=== PATIENT | female | born 1955 | race Hispanic/Latino ===

== ENCOUNTER → 2018-04-02 | Outpatient (CLI) | payer OTHER | END | disposition home or self-care (01) | LOC: OIH 09:38 | PROVIDERS: ATTEND Internal Medicine | DX: M53.3 Sacrococcygeal disorders, not elsewhere classified (principal) | CPT/HCPCS: 72220 ==

== ENCOUNTER → 2018-12-12 | Outpatient (CLI) | payer OTHER | END | disposition home or self-care (01) | LOC: OIH 09:28 | PROVIDERS: ATTEND Internal Medicine | DX: M53.3 Sacrococcygeal disorders, not elsewhere classified (principal); M54.17 Radiculopathy, lumbosacral region | CPT/HCPCS: 72100; 72220 ==

== ENCOUNTER → 2019-03-22 | Outpatient (CLI) | payer OTHER | END | disposition home or self-care (01) | LOC: OIH 10:30 | PROVIDERS: ATTEND Internal Medicine | DX: M47.815 Spondylosis without myelopathy or radiculopathy, thoracolumbar region (principal); I10 Essential (primary) hypertension; Q25.46 Tortuous aortic arch | CPT/HCPCS: 71046 ==

== ENCOUNTER → 2019-06-21 | Outpatient (CLI) | payer OTHER | END | disposition home or self-care (01) | LOC: OIH 10:20 | PROVIDERS: ATTEND Internal Medicine | DX: I10 Essential (primary) hypertension (principal) | CPT/HCPCS: 71046 ==

== ENCOUNTER → 2021-01-20 | Outpatient (CLI) | payer OTHER | END | disposition home or self-care (01) | LOC: RAH 09:18 | PROVIDERS: ATTEND Internal Medicine | DX: R10.11 Right upper quadrant pain (principal) | CPT/HCPCS: 76700 ==

== ENCOUNTER → 2021-07-05 | Outpatient (CLI) | payer OTHER | END | disposition home or self-care (01) | LOC: RAH 07-02 14:16 | PROVIDERS: ATTEND Internal Medicine | DX: M47.812 Spondylosis without myelopathy or radiculopathy, cervical region (principal); M48.02 Spinal stenosis, cervical region; R07.89 Other chest pain; M47.815 Spondylosis without myelopathy or radiculopathy, thoracolumbar region | CPT/HCPCS: 71046; 72040 ==

== ENCOUNTER → 2024-05-22 | Outpatient (CLI) | payer OTHER ==
--- NOTE | 2024-05-22 15:50 | HMCIMG ---
CT ABDOMEN/PELVIS W/O CONTRAST HISTORY: Right flank pain COMPARISON: None TECHNIQUE: Multiple sequential axial images of the abdomen and pelvis were obtained from the dome of the diaphragm through symphysis pubis. Patient was not given contrast through intravenous route. Oral contrast was not given. FINDINGS: No pleural effusion is seen bilaterally. There is no evidence of parenchymal disease or pulmonary nodule of the visualized lower lungs. Degenerative changes of the thoracolumbar spine are present. The heart is not enlarged. Liver measured 13 cm. The liver, spleen, adrenal glands and pancreas are unremarkable. There is no evidence of hydronephrosis bilaterally. No evidence of renal stone is seen. Fecal material is seen in the colon. There are normal size retroperitoneal and mesenteric lymph nodes. No ascites is seen. No CT evidence of acute appendicitis is seen. Pelvic sidewalls are symmetric bilaterally. Bladder is poorly distended. IMPRESSION: 1. Fecal material is seen in the colon. No ascites is seen. CT was performed with one or more following dose reduction techniques: automated exposure control, adjustment of the mA and kv according to patient's size, or use of a iterative reconstruction technique.
== END | disposition home or self-care (01) ==
LOC: RAH 14:06
PROVIDERS: ATTEND Internal Medicine
DX: N20.0 Calculus of kidney (principal); N23 Unspecified renal colic; N32.89 Other specified disorders of bladder; M47.815 Spondylosis without myelopathy or radiculopathy, thoracolumbar region
CPT/HCPCS: 74176